=== PATIENT | male | born 1980 | race Caucasian/White ===

== ENCOUNTER 2022-03-22 07:10 | Day surgery (SDC) | payer BC ==
[~2022-03-22 07:10] MED LIST: Lactated Ringers 1,000 ML IV SCH; Sodium Chloride 0.9% 10 ML Syringe FLUSH PRN; Sodium Chloride 0.9% 2.5 ML Syringe FLUSH PRN; Sodium Chloride 0.9% 20 ML SDV IV PRN
[2022-03-22] MEDS ORDERED: Ondansetron 4 MG/2 ML SDV IVPUSH PRN (07:52)
[2022-03-22] MEDS ORDERED: HYDROmorphone 1 MG/ML Syringe IVPUSH PRN (07:52)
[2022-03-22] MEDS ORDERED: Metoclopramide 10 MG/2 ML SDV IVPUSH PRN (07:52)
[2022-03-22] MEDS ORDERED: fentaNYL 50 MCG/ML SDV IVPUSH PRN (07:52)
[2022-03-22] MEDS ORDERED: Naloxone 0.4 MG/ML SDV IVPUSH PRN (07:52)
[2022-03-22] MEDS ORDERED: Morphine 2 MG/ML SYRINGE IVPUSH PRN (07:52)
[2022-03-22] MEDS ORDERED: Albuterol 0.083% 2.5 MG/3 ML Neb Soln NEB PRN (07:52)
[2022-03-22] MEDS ORDERED: cefOXitin 2 GM in Premix Bag 1 BAG IV ONE (08:00)
[2022-03-22] MEDS ORDERED: fentaNYL 100 MCG/2 ML SDV ONE (08:34)
[2022-03-22] MEDS ORDERED: Propofol 200 MG/20 ML SDV ONE (08:34)
[2022-03-22] MEDS ORDERED: Lidocaine 2% 11 ML Jelly Filled Syringe ONE (08:49)
[2022-03-22] MEDS ORDERED: Bupivacaine 0.5% 30 ML SDV ONE (08:49)
[2022-03-22] MEDS ORDERED: cefOXitin 1 GM Vial ONE (09:21)
== END 2022-03-22 11:30 | disposition home or self-care (01) ==
LOC: MW.SDS 07:10
PROVIDERS: ATTEND Surgery
DX: K64.3 Fourth degree hemorrhoids (principal); G47.30 Sleep apnea, unspecified; K21.9 Gastro-esophageal reflux disease without esophagitis; Z87.891 Personal history of nicotine dependence; Z98.890 Other specified postprocedural states; Z79.899 Other long term (current) drug therapy
CPT/HCPCS: 46260; A9270; J0694; J1170; J2704; J3010; J3490; J7120; 00902

== ENCOUNTER 2023-03-14 01:25 | Emergency (ER) | payer OTHER, BC ==
[2023-03-14] MEDS: Lidocaine 1% 5 ML VIAL INJECT ONE (01:53)
[2023-03-14] MEDS: Diphtheria,Pertussis(Acell),Tetanus Vaccine 0.5 ML Syringe IM ONE (01:53)
[2023-03-14] MEDS: ceFAZolin 1 GM in Sodium Chloride 0.9% 50 ML IV ONE (02:12)
[2023-03-14 02:14] LABS: BASOPHILS ABSOLUTE AUTO 0.07 K/uL (0.00-0.20); BASOPHILS PERCENT AUTO 1.2 % (0.0-1.0); EOSINOPHILS PERCENT AUTO 1.7 % (0.0-6.0); HEMATOCRIT 43.6 % (42.0-52.0); HEMOGLOBIN 15.9 g/dL (14.0-18.0); IMMATURE GRAN ABSOLUTE AUTO 0.02 K/uL (0.00-0.05); IMMATURE GRAN PERCENT AUTO 0.3 % (0.0-0.4); LYMPHOCYTES ABSOLUTE AUTO 1.98 K/uL (1.00-4.80); LYMPHOCYTES PERCENT AUTO 32.7 % (24.0-44.0); MEAN CORPUSCULAR HEMOGLOBIN 32.4 pg (28.0-32.0); MEAN CORPUSCULAR HGB CONC 36.5 g/dL (32.0-36.0); MONOCYTES ABSOLUTE AUTO 0.39 K/uL (0.00-0.80); MONOCYTES PERCENT AUTO 6.4 % (0.0-8.0); NEUTROPHILS ABSOLUTE AUTO 3.49 K/uL (1.80-7.70); NEUTROPHILS PERCENT AUTO 57.7 % (41.0-71.0); PLATELET COUNT,PLT 317 K/uL (150-400); WHITE BLOOD CELL COUNT,WBC 6.05 K/uL (3.9-11.3)
[2023-03-14] MEDS: Sodium Chloride 0.9% 2.5 ML Syringe FLUSH PRN (02:15)
[2023-03-14] MEDS: Sodium Chloride 0.9% 10 ML Syringe FLUSH PRN (02:15)
[2023-03-14 02:39] LABS: A/G RATIO 1.1 (0.9-1.6); BILIRUBIN TOTAL 0.3 mg/dL (0.2-1.0); CALCIUM 9.1 mg/dL (8.5-10.1); CREATININE 1.1 mg/dL (0.8-1.3); EST CRCL DRUG DOSING (CG) 91.25 mL/min; POTASSIUM,K 4.4 mmol/L (3.5-5.1); PROTEIN TOTAL,TP 7.5 g/dL (6.4-8.2)
[2023-03-14] MEDS: Acetaminophen/HYDROcodone 325-10 MG Tab PO ONE (02:40)
== END 2023-03-14 02:53 | disposition home or self-care (01) ==
LOC: MW.ED 01:25
DX: S67.22XA Crushing injury of left hand, initial encounter (principal); S67.197A Crushing injury of left little finger, initial encounter; Z23 Encounter for immunization; W23.0XXA Caught, crushed, jammed, or pinched between moving objects, initial encounter; Z79.899 Other long term (current) drug therapy
CPT/HCPCS: 29125; 36415; 73140-26-LT; 73140-LT; 80053; 85025; 85610; 90471; 90715; 96365; 99284; 99284-25; A9270-GY; J0690; J3490

== ENCOUNTER 2024-12-15 09:08 | Day surgery (SDC) | payer BC ==
[~2024-12-15 09:08] MED LIST changes: -Lactated Ringers 1,000 ML IV SCH; -Sodium Chloride 0.9% 20 ML SDV IV PRN
[2024-12-15] MEDS: Lactated Ringers 1,000 ML IV SCH (09:53)
[2024-12-15] MEDS ORDERED: propofoL 500 MG/50 ML 50 ML ONE (10:42)
== END 2024-12-15 12:30 | disposition home or self-care (01) ==
LOC: MW.SDS 09:08
PROVIDERS: ATTEND Surgery
DX: K44.9 Diaphragmatic hernia without obstruction or gangrene (principal); K21.9 Gastro-esophageal reflux disease without esophagitis; R19.4 Change in bowel habit; K64.9 Unspecified hemorrhoids; R13.10 Dysphagia, unspecified; E66.9 Obesity, unspecified; I10 Essential (primary) hypertension; Z68.33 Body mass index [BMI] 33.0-33.9, adult; E78.00 Pure hypercholesterolemia, unspecified; Z98.890 Other specified postprocedural states; Z79.899 Other long term (current) drug therapy; Z87.891 Personal history of nicotine dependence
CPT/HCPCS: 43239; 45380; J2003; J2704; J7120; 00813